=== PATIENT | female | born 1955 | race Caucasian/White ===

== ENCOUNTER 2018-09-24 11:10 | Outpatient (CLI) | payer MEDICARE, OTHER ==
--- NOTE | 2018-09-24 17:42 | ULT ---
PELVIC ULTRASOUND WITH ENDOVAGINAL IMAGIN09/24/18 Ultrasonography of the pelvis was performed for evaluation of postmenopausal bleeding. Multiple image s were done with both the abdominal and endovaginal probes. The uterus measures 6.9 x 2.9 x 3.9 cm. There is a somewhat echogenic mass in the central portion of the uterus with blood flow. It measures 4.9 x 3.5 x 3.9 cm. I cannot tell if it arises from the endom etrium or is part of the myometrium. One cannot reliably see the endometrial stripe or canal. There i s blood flow in this mass. Neither ovary was visible. No adnexal masses were seen. No free fluid was noted. IMPRESSION: 4.9 cm echogenic uterine mass with blood flow. Endometrium not clearly visible. I cannot separate whe ther this might be simply nothing more than a large fibroid versus a mass arising from the endometriu m itself. Gynecological referral and workup required. Code T POS: HOME
== END 2018-09-24 11:11 | disposition home or self-care (01) ==
LOC: BURULT 11:10
PROVIDERS: ATTEND Family Medicine
DX: N95.0 Postmenopausal bleeding (principal); N85.9 Noninflammatory disorder of uterus, unspecified
CPT/HCPCS: 76856